=== PATIENT | male | born 1970 | race Caucasian/White ===

== ENCOUNTER 2019-04-21 12:08 | Outpatient (CLI) | payer BC, OTHER | END 2019-04-21 23:59 | disposition home or self-care (01) | LOC: RAD 12:08 | PROVIDERS: ATTEND Nurse Practitioner Family | DX: M50.123 Cervical disc disorder at C6-C7 level with radiculopathy (principal); M48.061 Spinal stenosis, lumbar region without neurogenic claudication; Z87.891 Personal history of nicotine dependence; Z88.0 Allergy status to penicillin; Z98.890 Other specified postprocedural states | CPT/HCPCS: 72141; 99156; 99157; J2250; J3010 ==

== ENCOUNTER 2021-05-26 08:50 | Day surgery (SDC) | payer BC, MEDICARE ==
[~2021-05-26] VITALS: Ht 171.4 cm; Wt 83.3 kg
[2021-05-26 09:45] VITALS: BP 148/94
[2021-05-26] MEDS ORDERED: SODIUM CHLORIDE 0.9% 500 ML IV SCH ×2 (11:00)
[2021-05-26] MEDS ORDERED: FENTANYL PF 100 MCG/2ML ONE (13:17)
[2021-05-26] MEDS ORDERED: MIDAZOLAM 1 MG/ML, 5ML ONE (13:17)
== END 2021-05-26 14:40 | disposition home or self-care (01) ==
LOC: RAD 08:50 → EDSTATUS 11:00 → OUT 14:40
PROVIDERS: ATTEND Physician Assistant Surgical
DX: M54.2 Cervicalgia (principal); M54.12 Radiculopathy, cervical region; M54.16 Radiculopathy, lumbar region; Z88.0 Allergy status to penicillin
CPT/HCPCS: 72141; 99156; 99157; J2250; J3010; J7040